=== PATIENT | female | born 1995 | race Caucasian/White ===

== ENCOUNTER 2020-12-28 18:08 | Inpatient (IN) | payer BC, OTHER ==
[~2020-12-28] VITALS: Ht 160 cm; Wt 79.4 kg
[2020-12-28 20:15] LABS: HEMOGLOBIN 10.3 gm/dl (12.3-15.3); RED BLOOD COUNT 4.69 M/UL (4.00-5.10); WHITE BLOOD COUNT 11.3 K/UL (4.5-11.0)
[2020-12-29] MEDS ORDERED: HYDROCODON-ACE1 EAC4 PO (12:44)
[2020-12-29] MEDS ORDERED: IBUPROFEN600 MG PO (12:44)
[2020-12-29] MEDS ORDERED: DOCUSATE SODIU100 MG PO (12:44)
[2020-12-30 06:16] LABS: HEMOGLOBIN 9.1 gm/dl (12.3-15.3)
[2020-12-30] MEDS ORDERED: SULFAMETHOXAZO1 EACH PO (12:14)
== END 2020-12-30 17:33 | disposition home or self-care (01) | DRG 807 ==
LOC: GENOP 18:08 → OB 20:56
PROVIDERS: Obstetrics & Gynecology; ADMIT Obstetrics & Gynecology
PROC: 10E0XZZ Delivery of Products of Conception, External Approach (ICD-10-PCS; principal; 2020-12-28)
PROC: 0KQM0ZZ Repair Perineum Muscle, Open Approach (ICD-10-PCS; 2020-12-28)
PROC: 3E033VJ Introduction of Other Hormone into Peripheral Vein, Percutaneous Approach (ICD-10-PCS; 2020-12-28)
PROC: 10H07YZ Insertion of Other Device into Products of Conception, Via Natural or Artificial Opening (ICD-10-PCS; 2020-12-28)
DX: O70.1 Second degree perineal laceration during delivery (principal); Z37.0 Single live birth; O76 Abnormality in fetal heart rate and rhythm complicating labor and delivery; Z3A.39 39 weeks gestation of pregnancy
CPT/HCPCS: 36415; 51702; 80307; 81001; 82800; 83518; 85014; 85018; 85025; 90471; 90472; 90707; 90715; J0595; J2405; J2590; J2795; J7120; U0002